=== PATIENT | female | born 1985 | race Caucasian/White ===

== ENCOUNTER 2021-01-14 09:57 | Emergency (ER) | payer MEDICAID, OTHER ==
[~2021-01-14] VITALS: Ht 154.9 cm; Wt 59.0 kg
[2021-01-14 09:58] VITALS: BP 125/77
[2021-01-14] MEDS ORDERED: KETOROLAC TROMETH 60MG/2ML VIAL IM ONE (11:45)
== END 2021-01-14 11:56 | disposition home or self-care (01) ==
LOC: ER 09:57
DX: S46.911A Strain of unspecified muscle, fascia and tendon at shoulder and upper arm level, right arm, initial encounter (principal); Z90.710 Acquired absence of both cervix and uterus; X58.XXXA Exposure to other specified factors, initial encounter; Y93.89 Activity, other specified; Y92.89 Other specified places as the place of occurrence of the external cause; Y99.8 Other external cause status
CPT/HCPCS: 73030; 99283; J1885

== ENCOUNTER 2021-03-18 12:18 | Emergency (ER) | payer MEDICAID ==
[~2021-03-18] VITALS: Ht 154.9 cm; Wt 59.0 kg
[2021-03-18 13:01] VITALS: BP 113/72
[2021-03-18] MEDS ORDERED: KETOROLAC TROMETH 60MG/2ML VIAL IM ONE (13:45)
[2021-03-18] MEDS ORDERED: METH750T22 PO (15:14)
[2021-03-18] MEDS ORDERED: CEPH500C PO (15:14)
== END 2021-03-18 15:26 | disposition home or self-care (01) ==
LOC: ER 12:18
DX: S00.31XA Abrasion of nose, initial encounter (principal); Z90.710 Acquired absence of both cervix and uterus; W22.8XXA Striking against or struck by other objects, initial encounter; Y93.89 Activity, other specified; Y92.89 Other specified places as the place of occurrence of the external cause; Y99.8 Other external cause status
CPT/HCPCS: 70486; 96372; 99284; J1885